=== PATIENT | female | born 1970 | race African-American/Black ===

== ENCOUNTER 2016-09-10 14:55 | Emergency (ER) | payer OTHER ==
[~2016-09-10] VITALS: Ht 160 cm; Wt 75.0 kg
[2016-09-10 14:58] VITALS: BP 140/85; PULSE 98; RESP 15; O2SAT 99
--- NOTE | 2016-09-10 16:56 | DRSVH ---
PROCEDURE: X-RAY RIGHT KNEE, THREE VIEWS ([id number]) INDICATIONS: KNEE pain TECHNIQUE: 3 views of the knee were acquired. COMPARISON: None. FINDINGS: Bones: No fractures or dislocations. No suspicious bony lesions. Soft tissues: No joint effusion. No suspicious soft tissue calcifications. IMPRESSION: No trauma found. Dictated by: Sarkis Montoya M.D. on 09/10/2016 at 16:54 Approved by: Sarkis Montoya M.D. on 09/10/2016 at 16:54
--- NOTE | 2016-09-10 17:43 | ED.REPORT ---
HPI-Extremity Problem Lower Date of Service Sep 10, 2016 ED Provider: Steve Agustin MD A 46 year old female with no pertinent medical history presents to the ED complaining of right knee pain that began 2 weeks ago. Associated symptoms include swelling and pain with ROM. Patient reports that the pain has become progressively worse since onset. She denies any redness, warmth, fever, chills, or recent injury. She denies any chance of . Patient denies any other pain at this time. Nursing Notes Stated Complaint: RT KNEE PAIN Chief Complaint: Extremity Trauma Nursing Notes Reviewed: Yes Allergies: Coded Allergies: No Known Allergies (Unverified , 09/10/16) Scheduled PRN Hydrocodone-Acetaminophen 5-325 mg (Hydrocodone-Acetaminophen 5-325 mg) 1 Each Tablet 1 TABLET PO Q4H PRN PRN For Pain General Time Seen by MD: 15:33 Chief Complaint Knee injury right Hx Obtained From: Patient Arrived By: Walk-in Onset Occurred: More than a week ago... (2 weeks) Symptom Duration: Since onset Location: : Knee right Quality: Painful Severity: Current: Mild Severity: Maximum: Moderate Pertinent Negative: Pt denies other symptoms Exacerbated by: Range of motion Recent Healthcare: No recent doctor visit, No recent hospitalization Past Medical History Past Medical History Denies Past Surgical History Denies Smoking History Unknown if Ever Smoker Social History Other Social History: Good social support Ambulatory Status Independent Review of Systems Constitutional: Denies: Chills, Fever Musculoskeletal: Reports: Joint pain (Right knee pain ) Neurologic: Denies: Change LOC Complete sys rev & neg: except as marked. Respiratory: Denies: Shortness of breath Cardiovascular: Denies: Chest pain GI: Denies: Abdominal pain, Nausea, Vomiting Physical Exam Initial Vital Signs Vital Signs (First) Date Time Temp Pulse Resp B/P Pulse Ox O2 Delivery O2 Flow Rate FiO2 09/10/16 14:58 36.9 98 15 140/85 99 Room Air Initial VS: Reviewed Head / Eyes: Atraumatic, Normocephalic, PERRL Neck: Supple, Non-tender, Full range of motion Upper Extremities: Vascular intact, Neuro intact, No swelling, No tenderness Skin: Warm, Dry, No cyanosis Neurologic: Alert, Oriented, Nonfocal Psychiatric: Mood/affect normal, Behavior normal, Normal thought content Right Knee: Positive: Patella tender, Pre-patellar effusion, Swelling present..., Tenderness present..., Warmth present, Negative: Erythema present LOWER EXTREMITIES: Patellar Effusion present patellar ballotablilily No redness or induration Ankle / Foot: Atraumatic, Inspection NL, Neurologic intact, Vascular intact General/Constitutional: Awake, Alert Respiratory / Chest: Atraumatic, Breath sounds NL, Breath sounds = bilat, No respiratory distress Cardiovascular: Heart rate NL, Regular rhythm, Heart sounds NL, No gallop, No murmurs, No rubs Interpretation & Diagnostics Lab Results Interpretation Result Diagram: 09/10/16180909/10/161809 Test 09/10/16 18:10 White Blood Count 7.2th/mm3 (3.8-10.1) Red Blood Count 4.30mil/mm3 (3.90-5.20) Hemoglobin 11.5g/dL (12.0-15.6) Hematocrit 34.9% (35.0-46.0) Mean Corpuscular Volume 81.2fL (81-100) Mean Corpuscular Hemoglobin 26.7pg (27.0-35.0) Mean Corpuscular Hemoglobin Concent 33.0% (32.0-37.0) Red Cell Distribution Width 17.9% (12.3-15.4) Platelet Count 313bil/L (150-400) Neutrophils (%) (Auto) 48.7% (40-74) Lymphocytes (%) (Auto) 36.1% (14-46) Monocytes (%) (Auto) 11.6% (4-12) Eosinophils (%) (Auto) 3.0% (0-5) Basophils (%) (Auto) 0.3% (0-3) Sodium Level 138mEq/L (134-144) Potassium Level 4.0mEq/L (3.5-5.2) Chloride Level 99mEq/L (97-108) Carbon Dioxide Level 22mmol/L (18-29) Blood Urea Nitrogen 15mg/dL (6-24) Creatinine 0.63mg/dL (0.57-1.00) Estimat Glomerular Filtration Rate 130mL/min (>59) Glucose Level 102mg/dL (60-99) Calcium Level 9.8mg/dL (8.5-10.1) Total Bilirubin 0.3mg/dL (0.0-1.2) Aspartate Amino Transf (AST/SGOT) 19U/L (0-50) Alanine Aminotransferase (ALT/SGPT) 13U/L (0-32) Alkaline Phosphatase 49U/L (25-150) Total Protein 8.0g/dL (6.4-8.4) Albumin 4.7g/dL (3.4-5.0) Hold Gao Top Tube Received (Received) X-Ray Interpretation Xray Interpretation: IMPRESSION: No trauma found. Dictated by: Sarkis Montoya M.D. on 09/10/2016 at 16:54 X-Ray Ordered: Knee right Interpretation / Wet Read by: Interpret - Radiologist Procedures Arthrocentesis 1st attempt: Entered lateral space and scant amount clear synovial fluid 2nd attempt: Entered medial space and scant amount of clear synovial fluid is obtained. No purulence Not enough for lab results Time: 18:22 Aspiration Performed by: ED physician Consent / Setup / Site Prep: Consent from patient, Time-out performed, Hand hygiene observed, Stand sterile technique, Standard surgical scrub, Sterile drapes applied Indication: Evacuate effusion Skin Preparation Agent: Hibiclens - Chlorhexidine Local Anesthesia: Lidocaine 1% Joint Aspirated: Knee right Aspiration Needle: 18g Fluid Appearance: Clear Post-Procedure / Complications: Antibiotic oint applied, Dressing placed, No complications, Condition improved, Tolerated procedure well, Patient stable Re-Eval/Medical Decision Med Decision/Clinical Course A 46 year old female with no pertinent medical history presents to the ED complaining of right knee pain that began 2 weeks ago. Associated symptoms include swelling and pain with ROM. Patient reports that the pain has become progressively worse since onset. She denies any redness, warmth, fever, chills, or recent injury. She denies any chance of . Patient denies any other pain at this time. Through the emergency department the patient is afebrile stable vital signs. Examination of the knee reveals what initially appears to be intra-articular effusion with mild warmth. The patient she is ambulating on the affected knee without any increase in pain and is no overlying redness or induration. Plain films of the affected knee demonstrate no acute fracture or dislocation. CBC and CMP are unremarkable. Given concern for effusion and possible septic arthritis I proceeded with arthrocentesis as documented above. 18-gauge needle was easily passed into the joint space but only trace clear synovial fluid was obtained. Not enough synovial fluid was obtained for laboratory analysis. Given absence of any purulent material, fever or pain with weightbearing my suspicion for septic arthritis is lower. Moreover absence of increased fluid or purulent fluid in the joint or use against septic arthritis. That being said, without adequate specimen to send to the lab I am unable to definitively rule out septic arthritis.. Emergency department the patient was treated with hydromorphone periprocedurally. At this time, I feel that she is appropriate for discharge. She is advised to call first thing tomorrow morning to arrange for follow-up with primary care physician. She will return immediately for any fevers, redness, swelling, warmth or pain in her knee. Follow-up and return precautions were reviewed in detail with patient and significant other. They verbalized understanding and agreement with the plan. She was discharged in stable condition. Re-Evaluation/Progress : Time of Eval: 18:21 Patient Status: Condition improved Re-Evaluation/Progress Note: Knee tap performed. She tolerates the procedure well. She is informed of her reuslts and the intended treatment plan. Her pain has improved. Counseled Regarding: Diagnosis, Lab results, Need for follow-up, When/why to return to ED Discharge & Departure Impression: Primary Impression: Bursitis Additional Impressions: Right knee pain Chronicity: acute Qualified Code: M25.561 - Pain in right knee Swelling of right knee joint Disposition: Home Discharge Condition All VS Reviewed: Yes Condition: Stable Patient Instructions: Knee Bursitis (ED) Additional Instructions: Thank you for seeking care at the emergency room. It is difficult for us to make definitive diagnoses in the ED but we believe that you are experiencing bursitis. Our primary goal today in the ED was to evaluate you for any life-threatening conditions. Your evaluation was reassuring. We attempted to obtain fluid from your knee but there was none present. At this time we doubt that this is due to a serious bacterial infection in your knee. Please take 600 mg of ibuprofen 3 times per day as needed for pain. Keep the area clean and dry and use an blessing bandage. He should apply ice packs and elevate the leg. You should follow-up with your primary doctor in the 2-3 days for a recheck. You should return to the ED immediately if you develop sings of infection including difficulty walking, warmth, swelling, redness, increased pain, fevers , chills or pus drainage or weakness or any other concerning signs or symptoms. Thank you for letting us partake in your care today. Narcotic Pain Medicine You have been prescribed a narcotic for pain relief. These drugs are usually combined with acetaminophen (Tylenol#3, Percocet, Darvocet, Anexsia, Vicodin) or aspirin (Empirin#3, Percodan, Synalogs-DC) for increased effect. Narcotics act on the central nervous system to reduce pain; they also impair mental alertness and physical abilities. We advise you not to drink alcohol, drive a car, or operate dangerous equipment when you are taking theses drugs. You can lessen stomach irritation from your medicine by taking it with meals or a full glass of water. Common side effects of narcotics are: Nausea and vomiting, heartburn, consitpation, dizziness, sleepiness, and mood changes. If you have bothersome side effects or symptoms of an allergic reaction (itching, hives, rash), stop taking your medicine and call your doctor or the emergency room right away. Please keep your narcotic medicine well out of the reach of children. Referrals: NOPCP (PCP) [facility] Scribe Attestation Portions of this note were transcribed by Westley Ying. I, Dr. Agustin personally performed the history, physical exam and medical decision-making; I reviewed and confirmed the accuracy of the information in the transcribed note. Signed by: Rickey Stout, 09/10/16 1900. Steve Agustin MD Sep 10, 2016 17:43 WESTLEY YING Sep 10, 2016 17:51
[2016-09-10] MEDS ORDERED: HYDROmorphone 0.5 mg/0.5 mL iSecure Syringe IVPUSH PRN (17:50)
[2016-09-10] MEDS ORDERED: Lidocaine 1% 50 mL Inj NERVEBLOCK ONE (18:10)
[2016-09-10] MEDS ORDERED: HYDROmorphone 1 mg/mL Inj IM ONE (18:10)
[2016-09-10 18:21] LABS: BASOPHILS % (AUTO) 0.3 % (0-3); MONOCYTES % (AUTO) 11.6 % (4-12); Mean Corpuscular Hemoglobin 26.7 pg (27.0-35.0); Mean Corpuscular Volume 81.2 fL (81-100); NEUTROPHILS % (AUTO) 48.7 % (40-74); Platelet Count 313 bil/L (150-400)
[2016-09-10] MEDS ORDERED: HYDR-4003 PO (18:53)
[2016-09-10 19:05] VITALS: BP 116/66; PULSE 81
== END 2016-09-10 19:07 | disposition home or self-care (01) ==
LOC: SED 14:55
DX: M70.51 Other bursitis of knee, right knee (principal); M25.561 Pain in right knee; M79.89 Other specified soft tissue disorders
CPT/HCPCS: 20610; 36415; 73562; 80053; 85025; 96372; 99284; J1170